=== PATIENT | female | born 2000 | race Caucasian/White ===

== ENCOUNTER → 2020-04-22 | Outpatient (CLI) | payer OTHER ==
[~2020-04-22] MED LIST: MULTTAB20 PO
[2020-04-22 15:25] LABS: BASO # 0.1 10^3/uL (0.0-0.2); BASO % 0.4 % (0.0-1.0); EOS # 0.2 10^3/uL (0.0-0.5); EOS % 1.1 % (0.0-3.0); HEMATOCRIT 38.9 % (36.0-47.0); HEMOGLOBIN 13.7 g/dl (12.0-15.5); LYMPH # 3.1 10^3/uL (1.5-5.0); LYMPH % 20.4 % (24.0-44.0); MEAN CORPUSCULAR HEMOGLOBIN 31.9 pg (27.0-33.0); MEAN CORPUSCULAR HGB CONC 35.2 g/dl (32.0-36.5); MEAN CORPUSCULAR VOLUME 90.5 fl (80.0-96.0); MONO # 0.5 10^3/uL (0.0-0.8); MONO % 3.3 % (0.0-5.0); NEUTROPHILS # 11.4 10^3/uL (1.5-8.5); NEUTROPHILS % 74.4 % (36.0-66.0); PLATELET COUNT, AUTOMATED 225 10^3/uL (150-450); WHITE BLOOD COUNT 15.3 10^3/uL (4.0-10.0)
[2020-04-22 16:39] LABS: HEPATITIS C VIRUS ABY INDEX 0.3 INDEX (<0.8); HIV 1&2 SCREEN CENTAUR NEGATIVE (NEGATIVE)
[2020-04-22 17:20] LABS: CHLAMYDIA DNA AMPLIFICATION NEGATIVE (NEGATIVE); GC DNA AMPLIFICATION NEGATIVE (NEGATIVE)
== END ==
LOC: M PLALAB 13:48
PROVIDERS: ATTEND Advanced Practice Midwife
DX: Z34.01 Encounter for supervision of normal first pregnancy, first trimester (principal); Z36.89 Encounter for other specified antenatal screening

== ENCOUNTER → 2020-05-18 | Outpatient (CLI) | payer OTHER ==
--- NOTE | 2020-05-29 09:31 | REP ---
COMPLETE OBSTETRICAL ULTRASOUND CLINICAL: Dating and viability. TECHNIQUE: Transabdominal obstetrical ultrasound with color Doppler evaluation. FINDINGS: Ultrasound examination demonstrates a single live intrauterine in breech presentation. motion was identified by the technologist. Placenta is noted posteriorly and grade 1 without placenta previa or abruption. Amniotic fluid volume is normal. Cervix measures 3.0 cm in length and appears closed. Gestational age by current biometrical measurements 17 weeks 6 days with estimated date of delivery 10/20/2020. heart rate 152 beats per minute. Estimated weight by current measurements 209 grams (38th percentile). Anatomical assessment demonstrates normal cranium, ventricles, choroid plexus, cerebellum/posterior fossa, facial profile, stomach, kidneys, spine, extremities. Limited evaluation of the nose and lips, four chamber heart/ventricular outflow tracts, diaphragm, bladder, and three-vessel cord noted. IMPRESSION: Single live intrauterine in breech presentation. Biometrical measurements at 17 weeks 6 days gestational age. Anatomical limitations as noted above due to early age warrant reevaluation at approximately 20-21 weeks. MTDD
== END ==
LOC: M WHC 13:51 → EDUNIT# 14:00
PROVIDERS: ATTEND Advanced Practice Midwife
DX: O32.1XX0 Maternal care for breech presentation, not applicable or unspecified (principal); Z3A.17 17 weeks gestation of pregnancy

== ENCOUNTER 2020-06-05 13:00 | Emergency (ER) | payer OTHER ==
[~2020-06-05] VITALS: Ht 152.4 cm; Wt 60.7 kg
[2020-06-05] MEDS ORDERED: MULTTAB20 PO (13:18)
[2020-06-05 14:27] LABS: BASO # 0.1 10^3/uL (0.0-0.2); BASO % 0.4 % (0.0-1.0); EOS # 0.1 10^3/uL (0.0-0.5); EOS % 0.6 % (0.0-3.0); HEMATOCRIT 38.6 % (36.0-47.0); HEMOGLOBIN 13.3 g/dl (12.0-15.5); LYMPH # 2.5 10^3/uL (1.5-5.0); LYMPH % 17.6 % (24.0-44.0); MEAN CORPUSCULAR HEMOGLOBIN 32.4 pg (27.0-33.0); MEAN CORPUSCULAR HGB CONC 34.5 g/dl (32.0-36.5); MEAN CORPUSCULAR VOLUME 94.1 fl (80.0-96.0); MONO # 0.5 10^3/uL (0.0-0.8); MONO % 3.7 % (0.0-5.0); NEUTROPHILS # 10.8 10^3/uL (1.5-8.5); NEUTROPHILS % 77.1 % (36.0-66.0); PLATELET COUNT, AUTOMATED 221 10^3/uL (150-450)
[2020-06-05 14:46] LABS: BLOOD UREA NITROGEN 10 MG/DL (7-18); CALCIUM LEVEL 9.6 MG/DL (8.5-10.1); CARBON DIOXIDE LEVEL 29 MEQ/L (21-32); CHLORIDE LEVEL 107 MEQ/L (98-107); CREATININE FOR GFR 0.62 MG/DL (0.55-1.30); GLUCOSE, FASTING 74 MG/DL (70-100); POTASSIUM SERUM 4.5 MEQ/L (3.5-5.1); SODIUM LEVEL 138 MEQ/L (136-145)
--- NOTE | 2020-06-05 14:50 | REPVR ---
PROCEDURE INFORMATION: Exam: US , Limited Exam date and time: 06/05/2020 2:32 PM Age: 19 years old Clinical indication: Lmp or gestational age (in weeks): 20; Antepartum complications; Bleeding; ; Additional info: 20 weeks preg, vaginal bleeding TECHNIQUE: Imaging protocol: Real-time ultrasound of the maternal uterus with image documentation. Exam focused on the clinical indication. COMPARISON: OBS LIMITED US 05/18/2020 2:00 PM (report not provided) FINDINGS: Gestation: Single intrauterine gestation. heart rate: 139 bpm. Presentation: Breech. Placenta: Posterior fundal, grade 0. No demonstrated previa or abruption. Amniotic fluid: Appears subjectively within normal limits. DOPPLER: Umbilical artery Doppler: Umbilical S/D ratio 4.53. MATERNAL: Cervix: Closed, 3.1 cm in length. IMPRESSION: Single viable intrauterine gestation in breech presentation. Electronically signed by: Alejo Agarwal On 06/05/2020 14:50:15 PM
[2020-06-05 15:24] VITALS: BP 108/64
== END 2020-06-05 15:25 | disposition home or self-care (01) ==
LOC: M ED 13:00
DX: O20.8 Other hemorrhage in early pregnancy (principal); O26.892 Other specified pregnancy related conditions, second trimester; R10.2 Pelvic and perineal pain; M54.5 Low back pain; Z3A.20 20 weeks gestation of pregnancy; Z79.899 Other long term (current) drug therapy

== ENCOUNTER → 2020-06-11 | Outpatient (CLI) | payer OTHER ==
--- NOTE | 2020-06-11 15:00 | REP ---
INDICATION: F/U ANATOMY-NOSE/LIPS/HEART/OUTFLOW/DIAPHRAGM COMPARISON: 06/05/2020 TECHNIQUE: Transabdominal obstetrical ultrasound with color Doppler evaluation. FINDINGS: Examination demonstrates a single live intrauterine in cephalic presentation. motion is identified by technologist. Placenta is noted posterofundally and grade 1 without evidence for placenta previa or abruption. Amniotic fluid volume is normal. Cervix measures 3.1 cm in length and appears closed. No evidence for nuchal cord. Gestational age by LMP 21 weeks 2 days with CLIVE 10/20/2020. Gestational age by current measurements 21 weeks 3 days with CLIVE 10/19/2020. FHR equals 147 beats per minute. Estimated weight 430 grams (56thpercentile). Anatomical assessment demonstrates normal structures including cranium, facial features, lungs, four-chamber heart/ventricular outflow tracts, diaphragm, stomach, cord insertion/three-vessel cord, kidneys/bladder. IMPRESSION: Single live intrauterine in cephalic presentation demonstrating appropriate interval growth. In conjunction with prior examination anatomical assessment is complete and normal. <Electronically signed by Spencer Araujo > 06/11/20 [id number]
== END ==
LOC: M WHC 13:48
PROVIDERS: ATTEND Advanced Practice Midwife
DX: Z34.82 Encounter for supervision of other normal pregnancy, second trimester (principal); Z3A.21 21 weeks gestation of pregnancy

== ENCOUNTER → 2020-07-15 | Outpatient (REF) | payer OTHER | LOC: M SFHCWAGY 16:49 | PROVIDERS: ATTEND Advanced Practice Midwife | DX: Z34.02 Encounter for supervision of normal first pregnancy, second trimester (principal); Z3A.00 Weeks of gestation of pregnancy not specified ==

== ENCOUNTER → 2020-07-15 | Outpatient (REF) | payer OTHER ==
[2020-07-15 17:50] LABS: HEMATOCRIT 36.6 % (36.0-47.0); HEMOGLOBIN 12.3 g/dl (12.0-15.5); MEAN CORPUSCULAR HEMOGLOBIN 33.2 pg (27.0-33.0); MEAN CORPUSCULAR HGB CONC 33.6 g/dl (32.0-36.5); MEAN CORPUSCULAR VOLUME 98.7 fl (80.0-96.0); PLATELET COUNT, AUTOMATED 227 10^3/uL (150-450); RED BLOOD COUNT 3.71 10^6/uL (4.00-5.40); WHITE BLOOD COUNT 16.5 10^3/uL (4.0-10.0)
== END ==
LOC: M PLALAB 13:09
PROVIDERS: ATTEND Advanced Practice Midwife
DX: Z34.90 Encounter for supervision of normal pregnancy, unspecified, unspecified trimester (principal); Z3A.00 Weeks of gestation of pregnancy not specified

== ENCOUNTER → 2020-09-10 | Outpatient (CLI) | payer OTHER | LOC: M LABSMTC 14:02 | PROVIDERS: ATTEND Pediatrics | DX: Z20.822 Contact with and (suspected) exposure to COVID-19 (principal) ==

== ENCOUNTER → 2020-09-21 | Outpatient (REF) | payer OTHER | LOC: M PLALAB 10:48 | PROVIDERS: ATTEND Obstetrics & Gynecology | DX: Z3A.36 36 weeks gestation of pregnancy (principal) ==

== ENCOUNTER → 2020-09-22 | Outpatient (REF) | payer OTHER | LOC: M SFHCWAGY 13:30 | PROVIDERS: ATTEND Obstetrics & Gynecology | DX: Z34.93 Encounter for supervision of normal pregnancy, unspecified, third trimester (principal); Z3A.36 36 weeks gestation of pregnancy | CPT/HCPCS: 87081; G0463 ==

== ENCOUNTER 2020-10-12 14:20 | Outpatient (CLI) | payer OTHER ==
[~2020-10-12] VITALS: Ht 152.4 cm; Wt 76.3 kg
[2020-10-12 14:48] VITALS: BP 127/81
[2020-10-12] MEDS ORDERED: TUMS500C PO (14:51)
[2020-10-12] MEDS ORDERED: ACET325C5 PO (14:51)
[2020-10-12 15:43] LABS: APPEARANCE, URINE CLOUDY (CLEAR); BACTERIA, URINE AUTO NEGATIVE (NEGATIVE); BILIRUBIN, URINE AUTO NEGATIVE (NEGATIVE); BLOOD, URINE BLOOD NEGATIVE (NEGATIVE); CALCIUM OXALATE CRYSTALS SMALL; COLOR, URINE YELLOW (YELLOW); GLUCOSE, URINE (UA) AUTO NEGATIVE (NEGATIVE); KETONE, URINE AUTO NEGATIVE (NEGATIVE); LEUKOCYTE ESTERASE, URINE AUTO 1+ (NEGATIVE); MUCUS, URINE SMALL (NEGATIVE); NITRITE, URINE AUTO NEGATIVE (NEGATIVE); PROTEIN, URINE AUTO 1+ mg/dL (NEGATIVE); RBC, URINE AUTO 1 /HPF (0-3); SPECIFIC GRAVITY URINE AUTO 1.026 (1.002-1.035); SQUAMOUS EPITHELIAL CELL UR AU 12 /HPF (0-6); WBC, URINE AUTO 2 /HPF (0-3)
[2020-10-12 15:55] VITALS: BP 119/83
--- NOTE | 2020-10-12 16:14 | IPN ---
PROGRESS NOTE DATE: 10/12/2020 SUBJECTIVE: Fern is a 20-year-old 1, para 0. She is 38 and 6/7 weeks. EDC of 10/20/2020, based on second trimester ultrasound. She reports to labor and delivery today with a complaint of contractions that have been on and off approximately three days. She denies vaginal bleeding or leakage of fluid. She reports the pain as a 3/10. She does report that the fetus has been active. She also reports that these contractions feel like Kevin-Ramos contractions, they just will not go away. care was initiated at [facility] in the second trimester. course has been uncomplicated. OBSTETRIC HISTORY: Primigravida. OBSTETRIC LABS: A positive. Antibody screen negative. Syphilis negative. Gonorrhea and chlamydia negative. Hep B surface antigen negative. Hep C antibody nonreactive. HIV negative. Rubella immune. Gestational diabetic screening 105 and her GBS was negative. PAST MEDICAL HISTORY: Non-contributory. PAST SURGICAL HISTORY: None. FAMILY HISTORY: COPD, osteoporosis, asthma, diabetes, arthritis, ankylosing spondylitis, rheumatoid arthritis, cervical cancer, hypertension, heart disease, tremors, breast cancer, throat cancer. SOCIAL HISTORY: The patient is single; however, her partner is at bedside. She is a nonsmoker. She denies alcohol and drug use. No history of any sexually transmitted infections, and she denies a history of abuse physical, sexual, and emotional. ALLERGIES: No known drug allergies. OBJECTIVE: VITAL SIGNS: Temperature 98, pulse 85, respirations 18, BP 127/81. GENERAL APPEARANCE: She does not appear in any distress. She is smiling and talkative. SKIN: Verdi and warm. CARDIAC: heart rate is 145 moderate variability, positive accelerations, negative decelerations. ABDOMEN: Contractions appear to be every six minutes. They do palpate mild. PELVIC: Sterile vaginal exam 1 cm dilated, 50% effaced, -3 station, posterior, moderate texture. No bloody show with the exam. LABORATORY DATA: UA results appearance cloudy urine, 1+ protein, 1+ leukocyte esterase, negative nitrites, negative blood, negative bacteria. ASSESSMENT: Intrauterine at 38 and 6/7 weeks, heart rate category one, Kevin-Ramos contractions not in active labor. PLAN: Will send the urine for a urine culture. She is going to be discharged to home. I did review signs and symptoms of active labor, movement counts, access to care, danger signs to report. The patient is to keep her next scheduled visit as scheduled. All of her and her partner's questions have been answered and they are desiring discharge home.
== END 2020-10-12 16:24 | disposition home or self-care (01) ==
LOC: M LDO 14:20
PROVIDERS: ATTEND Advanced Practice Midwife
DX: O47.1 False labor at or after 37 completed weeks of gestation (principal); Z3A.38 38 weeks gestation of pregnancy
CPT/HCPCS: 59025; 81001; 87086; G0378; G0463

== ENCOUNTER 2020-10-27 06:59 | Inpatient (IN) | payer OTHER ==
[~2020-10-27] VITALS: Ht 152.4 cm; Wt 79.1 kg
[2020-10-27] VITALS (35 sets, daily range): BP systolic 111–189; BP diastolic 67–97
[~2020-10-27 06:59] MED LIST changes: +ACET325C5 PO; +TUMS500C PO
[2020-10-27] MEDS ORDERED: LACTATED RINGER'S 1000 ML IV STA (07:52)
[2020-10-27] MEDS: LR 1,000 ML IV SCH (07:52)
[2020-10-27] MEDS ORDERED: miSOPROStol 50MCG 1/2 TABLET PV ONE (08:30)
--- NOTE | 2020-10-27 09:28 | HPEPDOC ---
Obstetrical History & Physical General Date of Admission Oct 27, 2020 at 06:59 History of Present Illness Fern is a 20yo with SIUP at 41w0d by 17wk u/s presenting for scheduled IOL for LTG. No regular/painful ctx, no LOF, no vaginal bleeding. Good FM. 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 history Past Medical History Medical History benign PMhx Surgical History: Denies/None Family History Significant Family History: No pertinent family hx Social History Marital Status: Family situation: Spouse/partner home Psychosocial History: No pertinent psych hx * Smoker: non-smoker Alcohol: Denies Drugs: denies Imunizations Tdap status: current Influenza Status: current Allergies Coded Allergies: No Known Allergies (Unverified , 06/05/20) Medications Scheduled Calcium Carbonate (Tums) 200 Mg Tab.chew, 2 TAB PO Q4HP No122/Iron/Folic Acid ( Multi Tablet) 1 Each Tablet, 1 TAB PO DAILY Miscellaneous Medications Acetaminophen (Tylenol) 325 Mg Capsule, 500 MG PO Physical Examination Physical Examination GENERAL: Alert and oriented times three. ABDOMEN: Gravid and non-tender to touch. FETUS: Is vertex (VTX) by sterile vaginal examination (SVE) EXTREMITIES: No edema of BLE Laboratory Data 24H LABS Laboratory Tests 2 10/27/20 07:05: Serology Scanned Report Hepatitis B Testing Urine Culture: Escherichia (E.) Coli (in March treated with negative SHON x2) Pertinent Laboratoy Data Blood Type: A+ RBC Antibody Screen: Negative HIV: Negative Hepatitis B: Negative Hepatitis C: Negative Rapid Plasma Reagin: Nonreactive Rubella: Immune Chlamydia/Gonorrhea: Negative Group B Streptococcus: Negative Glucose Tolerance Test: 105 Anatomy Ultrasound Ultrasound Date: Jun 11, 2020 Placenta Location: Posterior Normal Anatomy: Yes Placenta Previa: No Steroid Therapy Steroid Therapy: No Vaginal Examination Dilation: 1cm Effacement: 50% Station: -2 Cervical Consistency: Medium Cervical Position: Posterior Presentation: Cephalic presentation Assessment Heart Rate (FHR): 130 Variability: Moderate Accelerations: Positive Decelerations: None Tocometer Contractions: Yes Frequency: irregular Assessment/Plan Assessment Fern is a 20yo with SIUP at 41w0d by 17wk u/s presenting for IOL for LTG. Vitals wnl, benign exam. Cat I FHRT, irregular ctx. SCE /-2, posterior. Lozano cervical bulb with 40cc NS was placed without issue and 50mcg cytotec PV. Cephalic by SCE. PMhx and PNC uncomplicated other than dating by 17wk u/s. Plan Admit and orient. It Field Technician and consent. Diet: regular for breakfast then clear liquids Group B Streptococcus (GBS) negative Labs and intravenous (IV) per unit protocol. Counseled on Pitocin and induction of labor (IOL). Lactated Ringers (LR) prior to epidural: Bolus 800 mL, then at 125 mL/hr. Anticipate normal spontaneous delivery () Candidate for epidural in active labor, IV stadol/phenergan in latent labor if desired Jennifer Dexter MD Oct 27, 2020 09:28
[2020-10-27] MEDS ORDERED: ACETAMINOPHEN 500 MG TAB PO PRN (10:00)
[2020-10-27 10:11] LABS: HEMATOCRIT 36.4 % (36.0-47.0); HEMOGLOBIN 12.5 g/dl (12.0-15.5); MEAN CORPUSCULAR HGB CONC 34.3 g/dl (32.0-36.5); MEAN CORPUSCULAR VOLUME 93.1 fl (80.0-96.0); PLATELET COUNT, AUTOMATED 190 10^3/uL (150-450); RED BLOOD COUNT 3.91 10^6/uL (4.00-5.40); WHITE BLOOD COUNT 13.7 10^3/uL (4.0-10.0)
[2020-10-27] MEDS ORDERED: miSOPROStol 25MCG 1/4 TABLET PO SCH (13:00)
[2020-10-27] MEDS: PROMETHAZINE INJ 25 MG/ML VIAL (J2550) IV PRN ×2 (13:28→19:44)
[2020-10-27] MEDS: BUTORPHANOL 2 MG/ML INJ (J0595) IV PRN ×2 (13:28→19:45)
[2020-10-27] MEDS ORDERED: OXYTOCIN DRIP 30 UNITS in IV 1 EA IV SCH (16:30)
[2020-10-27] MEDS ORDERED: FENTANYL 2MCG/ML ROPIVACAINE 0.2% IN 0.9% NACL 100ML IVBAG As Ordered ONE (21:38)
--- NOTE | 2020-10-27 21:54 | IPNPDOC ---
Text Note Date of Service The patient was seen on 10/27/20. NOTE Intrapartum Note Pt uncomfortable, now desiring epidural. Pitocin at 8mu. Vitals wnl, afebrile SCE: /-2, bulging bag of water Currently Cat I FHRT with bl 130, +accels, -decels, mod lupe Elaine: ctx q2-3min Plan for epidural, anesthesia notified and IVF bolus begun Will continue to closely monitor Plan to recheck in 2-4hr or earlier as indicated Safe to proceed Jennifer Dexter MD VS,Tanya, I+O VSTanya I+O Laboratory Tests 10/27/20 09:52 Vital Signs Date Time Temp Pulse Resp B/P (MAP) Pulse Ox O2 Delivery O2 Flow Rate FiO2 10/27/20 20:36 98.7 80 20 130/81 Jennifer Dexter MD Oct 27, 2020 21:54
[2020-10-27] MEDS ORDERED: NALOXONE INJ 0.4MG/1ML VIAL (J2310 PER 1MG) IV PRN (22:27)
[2020-10-27] MEDS ORDERED: LACTATED RINGER'S 1000 ML IV PRN (22:27)
[2020-10-27] MEDS ORDERED: FENTANYL/ROPIVACAINE/NACL BAG 100 ML EPIDURAL SCH (22:27)
[2020-10-27] MEDS ORDERED: REFRIGERATOR IV KEYS XX PRN (22:27)
[2020-10-27] MEDS ORDERED: ePHEDrine SULFATE 25 MG/5 ML(5MG/ML) SYRINGE IV PRN (22:27)
[2020-10-27] MEDS ORDERED: EPIDURAL/PCA KEYS XX PRN (22:27)
[2020-10-27] MEDS ORDERED: EPIDURAL COMMENT XX SCH (22:27)
[2020-10-27] MEDS ORDERED: ONDANSETRON 4MG/2ML VIAL IV PRN (22:27)
[2020-10-27] MEDS ORDERED: diphenhydrAMINE 50MG/ML VIAL (J1200) IV PRN (22:27)
--- NOTE | 2020-10-27 23:04 | IPNPDOC ---
Text Note Date of Service The patient was seen on 10/27/20. NOTE Intrapartum Note Pt doing well, now comfortable with epidural. Vitals wnl, afebrile Cat I FHRT with 130, +accels, -decels, mod lupe Jefferson: ctx q2hr SCE: 880/-2, AROM performed with moderate amount of clear fluid Will continue to titrate pitocin to adequate ctx Plan to recheck pt in 2-4hr or earlier as indicated Safe to proceed Jennifer Dexter MD VSTanya, I+O VSTanya I+O Laboratory Tests 10/27/20 09:52 Vital Signs Date Time Temp Pulse Resp B/P (MAP) Pulse Ox O2 Delivery O2 Flow Rate FiO2 10/27/20 20:36 98.7 80 20 130/81 Jennifer Dexter MD Oct 27, 2020 23:04
[2020-10-28] VITALS (18 sets, daily range): BP systolic 114–143; BP diastolic 65–91
--- NOTE | 2020-10-28 03:13 | DNPDOC ---
[facility] Delivery Note Delivery Note DATE OF DELIVERY: 10/28/20 PREDELIVERY DIAGNOSIS: 41w1d IOL for LTG POST DELIVERY DIAGNOSIS: Delivered. PROCEDURE: Spontaneous vaginal delivery GUIDE TRAVEL: Dr. Jennifer Dexter MD ANESTHESIA: epidural ESTIMATED BLOOD LOSS: 300 mL. FINDINGS: 7 pound 12 ounce (3510g) female infant, Score 8/8 DELIVERY SUMMARY: Fern is a 20yo [id number] s/p uncomplicated at 0212 on 10/28/20 after undergoing IOL for LTG at 41w1d. She was 1/50/-2 on presentation and IOL was started with go cervical bulb and PV cytotec. She received another dose of PO cytotec and then pitocin was started. She received an epidural in active labor. At 6cm she had AROM, clear. She then progressed to C/C/0, at which point she began to push. With excellent maternal effort, infant delivered OA, restituted MAHAD. Left anterior shoulder easily delivered followed by posterior shoulder and corpus. vigorous with spontaneous cry, apgars 8/8, placed on maternal abdomen and nose/mouth suctioned with bulb suction. After 2 minutes, cord clamped x2 and cut by FOB. With uterine massage and traction on the cord, placenta delivered spontaneously and intact with 3 vessel centrally inserted cord. Pitocin IV given per protocol. Fundus firm at u-2cm. Inspection of perineum and vagina revealed a small intra-vaginal 2mll and bilateral labial lacerations- after anesthetizing with 1% lidocaine, these was repaired in routine fashion with 3-0 vicryl suture with excellent reapproximation and total hemostasis noted. All counts correct x2. Mom and were doing well when I left the room. MD Guerita Weber Katrina D MD Oct 28, 2020 03:13
[2020-10-28] MEDS ORDERED: OXYTOCIN DRIP 30 UNITS in IV 1 EA IV SCH (03:14)
[2020-10-28] MEDS ORDERED: MEASLES,MUMPS,RUBELLA VACCINE INJ (MMR-II) (90707) SC SCH (03:15)
[2020-10-28] MEDS ORDERED: LIDOCAINE 1% MDV 20ML VIAL INFIL ONE (03:15)
[2020-10-28] MEDS ORDERED: DIBUCAINE 1% OINTMENT 30GM TOP PRN (03:15)
[2020-10-28] MEDS ORDERED: ACETAMINOPHEN TAB 650MG DOSE (2X325MG) PO PRN (03:15)
[2020-10-28] MEDS ORDERED: RHOGAM 300 MCG (1500 IU) INJ (J2790) IM SCH (03:15)
[2020-10-28] MEDS ORDERED: IBUPROFEN 600MG TAB PO PRN (03:15)
[2020-10-28] MEDS: IBUPROFEN 800 MG TAB PO PRN ×2 (05:09→13:08)
[2020-10-28] MEDS: LR 1,000 ML IV SCH (06:59)
[2020-10-28] MEDS: PRENATAL VITAMINS CHEWABLE TABLET PO SCH (07:23)
[2020-10-28] MEDS: ACETAMINOPHEN 500 MG TAB PO PRN (07:23)
[2020-10-28] MEDS: DOCUSATE SODIUM 100MG CAPSULE PO PRN (20:33)
[2020-10-29 06:00] VITALS: BP 131/95
[2020-10-29 08:08] VITALS: BP 131/95
[2020-10-29] MEDS: PRENATAL VITAMINS CHEWABLE TABLET PO SCH (08:11)
[2020-10-29] MEDS: IBUPROFEN 800 MG TAB PO PRN ×2 (08:12→17:45)
[2020-10-29] MEDS: ACETAMINOPHEN 500 MG TAB PO PRN (09:13)
--- NOTE | 2020-10-29 09:52 | IPNPDOC ---
Progress Note Date of Service: Oct 29, 2020 Day#: 1 Progress Note SUBJECT: Fern is a who presented for an induction of labor at 41 weeks and had a a go bulb, IV Pitocin and Cytotec for induction of labor. She received an epidural for pain management. Fern had a vaginal delivery of a living female who weighted 7 lbs 12 oz. She has been ambulating, voiding spontaneously without issue and tolerating regular diet. She is having difficulty . OBJECTIVE: VITAL SIGNS: Within normal limits, afebrile. Alert and oriented times three. Breath sounds clear to auscultation. Abdomen: Fundus firm at U. Soft, NTTP. Minimal lochia. ASSESSMENT: Day 1 PLAN: 1. consult today. 2. Continue nursing care today. 3. Anticipate discharge tomorrow. VS, I&O, 24H, Fishbone Vital Signs/I&O Vital Signs Date Time Temp Pulse Resp B/P (MAP) Pulse Ox O2 Delivery O2 Flow Rate FiO2 10/29/20 08:08 97.8 80 16 131/95 98 Room Air SOHAN SMITH CNM Oct 29, 2020 09:52
[2020-10-29 10:25] VITALS: BP 136/79
[2020-10-29 10:30] VITALS: BP 136/79
[2020-10-29] MEDS: DOCUSATE SODIUM 100MG CAPSULE PO PRN (17:50)
[2020-10-29 18:00] VITALS: BP 132/84
[2020-10-30 05:53] VITALS: BP 135/88
[2020-10-30] MEDS ORDERED: ACET-683 PO (06:43)
[2020-10-30] MEDS ORDERED: IBUP80TA PO (06:43)
[2020-10-30] MEDS: IBUPROFEN 800 MG TAB PO PRN (08:21)
[2020-10-30] MEDS: PRENATAL VITAMINS CHEWABLE TABLET PO SCH (09:46)
== END 2020-10-30 11:30 | disposition home or self-care (01) | DRG 807 ==
LOC: M LDI 06:59 → M OBS 10-28 05:25
PROVIDERS: ADMIT Obstetrics & Gynecology; ATTEND Obstetrics & Gynecology
PROC: 3E0P7GC Introduction of Other Therapeutic Substance into Female Reproductive, Via Natural or Artificial Opening (ICD-10-PCS; 2020-10-27)
PROC: 10907ZC Drainage of Amniotic Fluid, Therapeutic from Products of Conception, Via Natural or Artificial Opening (ICD-10-PCS; 2020-10-27)
PROC: 10E0XZZ Delivery of Products of Conception, External Approach (ICD-10-PCS; principal; 2020-10-28)
PROC: 0KQM0ZZ Repair Perineum Muscle, Open Approach (ICD-10-PCS; 2020-10-28)
PROC: 0HQ9XZZ Repair Perineum Skin, External Approach (ICD-10-PCS; 2020-10-28)
DX: O48.0 Post-term pregnancy (principal); Z37.0 Single live birth; Z3A.41 41 weeks gestation of pregnancy; O70.1 Second degree perineal laceration during delivery; O70.0 First degree perineal laceration during delivery

== ENCOUNTER → 2022-01-19 | Outpatient (CLI) | payer OTHER ==
[~2022-01-19] MED LIST changes: +ACET-683 PO; +IBUP80TA PO
== END ==
LOC: M SOG 13:30
PROVIDERS: ATTEND Orthopaedic Surgery
DX: M53.3 Sacrococcygeal disorders, not elsewhere classified (principal)

== ENCOUNTER 2022-02-15 08:47 | Emergency (ER) | payer OTHER ==
[~2022-02-15] VITALS: Ht 152.4 cm; Wt 53.6 kg
[2022-02-15 09:46] LABS: BASO # 0.1 10^3/uL (0.0-0.2); BASO % 0.6 % (0.0-1.0); EOS # 0.1 10^3/uL (0.0-0.5); EOS % 1.2 % (0.0-3.0); HEMATOCRIT 39.6 % (36.0-47.0); HEMOGLOBIN 13.7 g/dl (12.0-15.5); LYMPH # 2.6 10^3/uL (1.5-5.0); LYMPH % 23.9 % (24.0-44.0); MEAN CORPUSCULAR HEMOGLOBIN 31.6 pg (27.0-33.0); MEAN CORPUSCULAR HGB CONC 34.6 g/dl (32.0-36.5); MEAN CORPUSCULAR VOLUME 91.2 fl (80.0-96.0); MONO # 0.5 10^3/uL (0.0-0.8); MONO % 4.2 % (2.0-8.0); NEUTROPHILS # 7.5 10^3/uL (1.5-8.5); NEUTROPHILS % 69.7 % (36.0-66.0); PLATELET COUNT, AUTOMATED 221 10^3/uL (150-450); RED BLOOD COUNT 4.34 10^6/uL (4.00-5.40); WHITE BLOOD COUNT 10.7 10^3/uL (4.0-10.0)
[2022-02-15] MEDS ORDERED: NORCO, ANEXSIA 5/325MG TABLET (HYDROcodone/ACETAMINOPHEN) PO ONE (10:05)
[2022-02-15] MEDS ORDERED: KETO10TAB PO (10:46)
[2022-02-15 10:53] VITALS: BP 135/80
== END 2022-02-15 10:56 | disposition home or self-care (01) ==
LOC: M ED 08:47
DX: K02.9 Dental caries, unspecified (principal); K08.89 Other specified disorders of teeth and supporting structures

== ENCOUNTER → 2022-04-29 | Outpatient (CLI) | payer OTHER ==
[~2022-04-29] MED LIST changes: +KETO10TAB PO
[2022-04-29 17:37] LABS: BASO # 0.1 10^3/uL (0.0-0.2); BASO % 0.6 % (0.0-1.0); EOS # 0.2 10^3/uL (0.0-0.5); EOS % 2.4 % (0.0-3.0); HEMATOCRIT 36.7 % (36.0-47.0); HEMOGLOBIN 12.6 g/dl (12.0-15.5); LYMPH # 3.6 10^3/uL (1.5-5.0); LYMPH % 46.5 % (24.0-44.0); MEAN CORPUSCULAR HEMOGLOBIN 31.9 pg (27.0-33.0); MEAN CORPUSCULAR HGB CONC 34.3 g/dl (32.0-36.5); MEAN CORPUSCULAR VOLUME 92.9 fl (80.0-96.0); MONO # 0.4 10^3/uL (0.0-0.8); MONO % 4.7 % (2.0-8.0); NEUTROPHILS # 3.6 10^3/uL (1.5-8.5); NEUTROPHILS % 45.7 % (36.0-66.0); PLATELET COUNT, AUTOMATED 216 10^3/uL (150-450); RED BLOOD COUNT 3.95 10^6/uL (4.00-5.40); WHITE BLOOD COUNT 7.8 10^3/uL (4.0-10.0)
[2022-04-29 18:34] LABS: ALBUMIN 3.6 GM/DL (3.2-5.2); ALT/SGPT 11 U/L (12-78); BILIRUBIN,TOTAL 0.3 MG/DL (0.2-1.0); BLOOD UREA NITROGEN 7 MG/DL (7-18); CALCIUM LEVEL 8.9 MG/DL (8.5-10.1); CARBON DIOXIDE LEVEL 25 MEQ/L (21-32); CHLORIDE LEVEL 108 MEQ/L (98-107); CREATININE FOR GFR 0.74 MG/DL (0.55-1.30); FREE T4 0.94 NG/DL (0.76-1.46); GLOMERULAR FILTRATION RATE > 60.0 (>60); GLUCOSE, FASTING 72 MG/DL (70-100); POTASSIUM SERUM 4.3 MEQ/L (3.5-5.1); SODIUM LEVEL 138 MEQ/L (136-145); TOTAL PROTEIN 6.5 GM/DL (6.4-8.2)
== END ==
LOC: M PLALAB 15:12
PROVIDERS: ATTEND Student in an Organized Health Care Education/Training Program
DX: Z00.00 Encounter for general adult medical examination without abnormal findings (principal)